=== PATIENT | female | born 1970 | race Caucasian/White ===

== ENCOUNTER 2024-03-03 16:59 | Inpatient (IN) | payer OTHER, SELFPAY ==
[2024-03-03 12:47] VITALS: BP 116/80; BMI 20.4
[2024-03-03] MEDS: TORADOL 15 MG IV (13:11)
--- NOTE | 2024-03-03 13:26 | ED.GENMED ---
History of Present Illness
General
Chief Complaint: Dental Problem
Source: patient
Exam Limitations: none
Time Seen by Provider: 03/03/24 13:09
History of Present Illness
History of Present Illness:
Patient is a 53-year-old woman with history of anxiety presenting to the emergency department with a dental infection. Patient states that she has had multiple dental caries with abscesses in the past. She has required admission many years ago for
IV antibiotics. She states about a month ago she went to an urgent care for a tooth infection and was given amoxicillin. She was recently incarcerated about 2 weeks ago. The infection got worse and she was on p.o. antibiotics. She believes that
she was on amoxicillin. For the past 2 days she has been giving IV clindamycin. However she states that the pain and swelling is worsening on the right side. She does state that her eye is more swollen. She does have a headache and some blurry
vision to the right eye. She does have some new numbness tingling to the right side of her body and face. She is unsure when that happened. No weakness. No fevers. She has been having some chills. No hearing changes. No chest pain or
difficulty breathing. No nausea no vomiting. She does have history of methamphetamine use. No history of IV drug use.
If applicable-neuro sx onset
Onset of symptoms known: No
Time pt last seen normal is known: No
Phy Exam
Physical Exam
Physical Exam:
GENERAL: in no acute distress
HEENT: normocephalic, extraocular movements intact, visual michel intact, right-sided periorbital edema, pupils equal and reactive bilaterally, moist oral mucosa, diffuse dental caries though no obvious abscess visualized, some right jaw fullness
NECK: normal inspection
RESPIRATORY: no respiratory distress, clear to auscultation bilaterally
CARDIOVASCULAR: regular rate and rhythm
ABDOMEN/: soft, non-distended, non-tender to palpation, no rebound or guarding
EXTREMITIES: non-tender, no edema/swelling
NEUROLOGIC: NEUROLOGIC: alert and oriented x 3, cranial nerves II-XII intact (slightly decreased sensation to the right face), right upper extremity strength 5/5, left upper extremity strength 5/5, right lower extremity strength 5/5, left lower
extremity strength 5/5, decree sensation to the right upper and lower extremity normal [id number] and [id number], gait not tested formally
SKIN: warm
Course
Orders/Labs/Results
Orders:
Orders
03/03/24 13:08
Ketorolac [Toradol] 15 mg .ROUTE .STK-MED ONE
03/03/24 13:10
Ketorolac [Toradol] 15 mg IV NOW STA
03/03/24 13:23
CT Facial Bones W/ Iv Contrast Urgent
Comment:
Reason For Exam: maxillary dental abscess
03/03/24 13:24
Electrocardiogram (*1) Urgent
Reason for Study: TIA/Stroke
EKG- Treatment ONCE
03/03/24 13:25
CT Head W/o Iv Contrast Urgent
Comment:
Reason For Exam: r/o cva
03/03/24 13:45
Basic Metabolic Panel Urgent
Complete Blood Count/With Diff Urgent
03/03/24 13:54
Diphenhydramine [Benadryl] 25 mg IV NOW STA
Prochlorperazine [Compazine] 5 mg IV NOW STA
03/03/24 14:15
0.9% Sodium Chloride 1000 ml [Nss] 1,000 ml IV BOLUS
03/03/24 15:49
Ampicillin/Sulbactam 3 G [Unasyn] 3 gm 0.9% Sodium Chloride 100 ml [Nss] 100 ml IV NOW
Abnormal Lab Results
03/03/24
13:45
RBC 4.09 L 10^6/uL
(4.20-5.40)
Hgb 11.7 L g/dL
(12.0-16.0)
Hct 34.2 L %
(37.0-47.0)
Absolute Neuts (auto) 8.2 H 10^3/uL
(1.4-6.5)
Absolute Monos (auto) 0.9 H 10^3/uL
(0.1-0.6)
Neutrophils % 75.3 H %
(42.2-75.2)
Lymphocytes % 14.6 L %
(20.5-51.1)
03/03/24 13:45
03/03/24 13:45
Vital Signs
Initial and Last Documented VS:
Initial Vital Signs
Temp Pulse Resp BP Pulse Ox
98.7 F 95 16 116/80 99
03/03/24 12:47 03/03/24 12:47 03/03/24 12:47 03/03/24 12:47 03/03/24 12:47
Last Documented Vital Signs
Temp Pulse Resp BP Pulse Ox
98.7 F 95 16 116/80 99
03/03/24 12:47 03/03/24 12:47 03/03/24 12:47 03/03/24 12:47 03/03/24 12:47
MDM/Problems Addressed
Differential Diagnosis Includes:
Patient is a 53-year-old woman presenting to the emergency department with a possible dental infection that has been ongoing for the past month. Patient is afebrile here. Exam does show right-sided periorbital edema with some right-sided swelling
to the face. She does have decreased right-sided sensation to the face upper and lower extremity, she does have diffuse dental caries but no obvious abscess. Differential consists of CVA versus abscess versus deeper space abscess such as
intracranial versus dental infection versus electrolyte derangement. Will obtain CBC BMP EKG CT scan of the brain to rule out CVA as well as CT face to evaluate abscess. Patient will need IV antibiotics and admission
Chronic conditions affecting care: Psychiatric illness
*Critical Care Note
Total Time (30-74mins, 75-104mins- exclusive of procedures): Not Applicable
Update Note
Update Note:
Labs showed normal white count. BMP is unremarkable. EKG per my interpretation normal sinus rhythm without any ST elevation. CT scan of the head without any acute abnormality. CT facial bone does show right-sided periapical abscess. Please see
read below. Patient's headache has improved after the migraine cocktail. Unfortunately still with ongoing right-sided decree sensation. Will give IV Unasyn for the infection. She has received fluids. Did notify [facility]. Discussed with hospitalist
who accepted to their service
There is a phlegmonous collection/likely developing abscess along the anterior right maxilla associated with the root of the maxillary right canine. This measures approximately 9 x 7 mm. There is additional soft tissue swelling and stranding
throughout the maxillary and mandibular soft tissues on the right
There is extensive additional dental caries involving the roots of the residual right-sided maxillary premolars and molars as well as the left maxillary molars and premolars. Dental caries involving the bilateral mandibular premolars with associated
periapical lucencies as well as an extensive likely carry of the left mandibular second molar.
There is mild mucosal thickening along the floor of the maxillary sinuses, likely odontogenic in nature.
ED Attending Note
-
Portions of this chart may have been created with voice recognition software.� Occasional wrong word or��sound alike� substitutions may have occurred due to the inherent limitations of voice recognition software.
Discharge Plan
Departure
Patient Disposition: Admit
Date of Disposition: 03/03/24
Time of Disposition: 15:58
Admit to doctor: roberto jin
Presentation/result/management discussed w/ accepting MD/DO: Hospitalist
Discharge Problem:
Abscess, dental, Numbness and tingling
Prescriptions:
No Action
quetiapine 25 mg Tablet
25 mg PO DAILY
amoxicillin 500 mg Capsule
500 mg PO TID
clonazepam 0.5 mg Tablet
0.5 mg PO HS
Theragen Tablet
1 tab PO DAILY
acetaminophen 500 mg Tablet
1,000 mg PO TID
diphenhydramine HCl 25 mg Capsule
25 mg PO BID
ibuprofen 600 mg Tablet
600 mg PO TIDPRN PRN (Reason: mild pain)
quetiapine 50 mg Tablet
50 mg PO HS
clindamycin in 0.9 % sod chlor 600 mg/50 mL Piggyback
600 mg IV Q8H
Referrals:
[facility] [Family Provider] -
Interventions
Interventions:
*Risk Screen - Suicide Last Done: 03/03/24 12:47
*General Assessment Last Done: 03/03/24 12:47
*Neglect/Abuse Screening Last Done: 03/03/24 12:47
ED- Fall Risk Assessment Last Done: 03/03/24 12:57
*ED COVID-19 Vaccine History Last Done: 03/03/24 12:47
Discharge Date and Time
Print Language: CZECH
[2024-03-03 13:58] LABS: % Basophils 0.6 % (0-2); % Eosinophils 1.2 % (0-6); % Immature Granulocytes 0.3 % (0-0.5); % Lymphocytes 14.6 % (20.5-51.1); % Neutrophils 75.3 % (42.2-75.2); Absolute Basophils 0.1 10^3/uL (0-0.2); Absolute Eosinophils 0.1 10^3/uL (0-0.7); Absolute Lymphocytes 1.6 10^3/uL (1.2-3.4); Absolute Monocytes 0.9 10^3/uL (0.1-0.6); Absolute Neutrophils 8.2 10^3/uL (1.4-6.5); Hematocrit 34.2 % (37.0-47.0); Hemoglobin 11.7 g/dL (12.0-16.0); Mean Corp Hgb Conc. 34.2 g/dL (33.0-37.0); Mean Corpuscular Hgb 28.6 pg (27.0-31.0); Mean Corpuscular Volume 83.6 fL (81.0-99.0); Mean Platelet Volume 9.1 fL (7.4-10.4); Nucleated Red Blood Cells % 0 %; Platelet Count 325 10^3/uL (130-400); Red Blood Cell Count 4.09 10^6/uL (4.20-5.40); Red Cell Dist. Width 13.6 % (11.5-14.5); White Blood Cell Count 10.8 10^3/uL (4.8-10.8)
[2024-03-03 14:10] LABS: Blood Urea Nitrogen 10 mg/dl (7-17); Calcium 9.2 mg/dl (8.4-10.2); Carbon Dioxide 29 mmol/L (22-30); Chloride 107 mmol/L (98-107); Estimated Creatinine Clearance 69 ml/min; Glucose 84 mg/dl (70-99); Potassium 3.9 mmol/L (3.5-5.1); Sodium 141 mmol/L (135-145); eGFR > 60.00
[2024-03-03] MEDS: COMPAZINE 5 MG IV (14:20)
[2024-03-03] MEDS: BENADRYL 25 MG IV (14:20)
[2024-03-03] MEDS: NSS 1000 IV (14:24)
[2024-03-03] MEDS: UNASYN IV ×2 (16:04→21:12)
--- NOTE | 2024-03-03 16:28 | HPS.HSE ---
Addendum entered and electronically signed by Morgan Colvin MD 03/03/24 17:07:
53 female past medical history of dental caries who is presenting from the F with facial pain and decreased sensation. Patient was found to have a dental abscess. Patient underwent CT of the head which is negative. Facial CT was positive with
mild abscess. Patient with history of methamphetamine abuse. Quit due to being incarcerated. Used to smoke. History of severely poor oral hygiene.
General: Chronically ill-appearing, appears older than stated age is
HEENT: Significantly poor oral hygiene, missing teeth, dental caries, prior cavity noted, R upper side missing teeth
Respiratory: Clear
Cardiac: S1/S2 and Regular Rhythm; No Murmur or Rub
GI: Soft, Non Tender, Non Distended and Normal Bowel Sounds; No Organomegaly
Musculoskeletal: No Clubbing, No Cyanosis and No Edema
Skin: Rash and Other (right facial swelling, redness)
Neuro: AO x 3 and Nonfocal/grossly intact, moving all 4 extremities
Psych: Calm
Impression
Dental abscess
Facial swelling secondary to above
Mood disorder
Polysubstance abuse
Plan
Start patient on liquid diet only
IV Unasyn 3 g every 6
OMFS has been consulted-may require drainage
Check blood cultures
ID evaluation
Chloraseptic oral rinse twice daily
Tylenol and ibuprofen
Ice pack as needed
I spent a total of 79 minutes with the patient or on the floor. More than 50% of this time involved counseling and coordination of care.
Original Note:
Family Physician
-
Family Physician: [facility]
Chief Complaint
-
dental swelling and pain
History of Present Illness
3-year-old woman with history of anxiety presenting to the emergency department with a dental infection. patient was noted to have right sided dental infection for which she was treated with abx a month ago. She was recently incarcerated about 2
weeks ago. The infection got worse and she was on p.o. antibiotics in the detention. patient stated worsening right facial swelling, pain. she complained of headache. she was also noted have right blurry vision. she was getting iv clindamycin in detention
with no improvement. denied fever, chills. denied chest pain, sob. denied abdominal pain,n,v,d. denied dysuria or hematuria. She does have history of methamphetamine use. she last used on 02/18.
patient started on Unasyn. admitting for further management.
Medical History
Past Medical History
Past Medical History: Reports Other
Additional Past Medical History:
anxiety
prolapsed uterus
Past Surgical History: Reports None and Other
Social History
Tobacco: Non-smoker
Alcohol: None
Drug: Other (meth)
Living: Nursing Home
Family History
Family History: Not pertinent
Allergies / Home Medications
Allergies reflects when Allergies were last updated in [facility].
Home Medications with original date entered in [facility]
Allergy/Medication List:
Allergies
Allergy/AdvReac Type Severity Reaction Status Date / Time
No Known Allergies Allergy Verified 03/03/24 13:10
Home Medications
acetaminophen 500 mg tablet 1,000 mg PO TID 03/03/24
amoxicillin 500 mg capsule 500 mg PO TID 03/03/24
clindamycin 600 mg/50 mL in 0.9% sodium chloride intravenous piggyback 600 mg IV Q8H 03/03/24
clonazepam 0.5 mg tablet 0.5 mg PO HS 03/03/24
diphenhydramine HCl 25 mg capsule 25 mg PO BID 03/03/24
ibuprofen 600 mg tablet 600 mg PO TIDPRN PRN mild pain 03/03/24
quetiapine 25 mg tablet 25 mg PO DAILY 03/03/24
quetiapine 50 mg tablet 50 mg PO HS 03/03/24
therapeutic multivitamin 1 tab PO DAILY 03/03/24
Review of Systems
-
Constitutional: Reports No Symptoms
EENT: Reports No Symptoms
Respiratory: Reports No Symptoms
Cardiac: Reports No Symptoms
Abdomen/GI: Reports No Symptoms
: Reports No Symptoms
Musculoskeletal: Reports No Symptoms
Skin: Reports Other (right facial swelling, redness)
Neurological: Reports No Symptoms
Endocrine: Reports No Symptoms
Hematologic/Lymphatic: Reports No Symptoms
Psych: Reports No Symptoms
Physical Exam
Vital Signs
Vital Signs
Temp Pulse Resp BP Pulse Ox
98.7 F 95 16 116/80 99
03/03/24 12:47 03/03/24 12:47 03/03/24 12:47 03/03/24 12:47 03/03/24 12:47
Physical Exam
General: Well Developed, Well Nourished and No Apparent Distress
HEENT: NormoCephalic, Moist mucous membranes and Atraumatic
Respiratory: Clear
Cardiac: S1/S2 and Regular Rhythm; No Murmur or Rub
GI: Soft, Non Tender, Non Distended and Normal Bowel Sounds; No Organomegaly
Rectal: Deferred by Provider
Musculoskeletal: No Clubbing, No Cyanosis and No Edema
Skin: Rash and Other (right facial swelling, redness)
Neuro: AO x 3 and Nonfocal/grossly intact
Psych: Calm
Laboratory Results
-
03/03/24 13:45
03/03/24 13:45
Data Reviewed
-
CT Scan: Report Reviewed by me
Lab Data: Labs Reviewed by me
Impression/Plan
-
# Dental abscess likely from meth abuse
-Facial bone CT with impression of phlegmonous collection/likely developing abscess along the anterior right maxilla associated with the root of the maxillary right canine. This measures approximately 9 x 7 mm. There is additional soft tissue
swelling and stranding throughout the maxillary and mandibular soft tissues on the rightThere is extensive additional dental caries involving the roots of the residual right-sided maxillary premolars and molars as well as the left maxillary molars
and premolars. Dental caries involving the bilateral mandibular premolars with associated periapical lucencies as well as an extensive likely carry of the left mandibular second molar. There is mild mucosal thickening along the floor of the
maxillary sinuses, likely odontogenic in nature.
-head CT with no acute findings.
-IV Unasyn continued
-Tylenol .Motrin prn for fever and pain
-obtain blood culture
-OMFS consulted
-liquid diet, NPO after MN
-ID consulted
#anxiety
-clonazepam and Seroquel continued
#hxt of meth abuse
-last use was february 18
#DVT prophylaxis
-Lovenox
#CODE status
-full code
--- NOTE | 2024-03-03 17:07 | W.PN.UPDATE ---
Update Note
Progress Note Update
FOR BILLING PURPOSE ONLY
[2024-03-03 17:38] VITALS: BP 121/76
[2024-03-03] MEDS: MOTRIN 600 MG PO (18:41)
[2024-03-03] MEDS: BENADRYL 25 MG PO (21:11)
[2024-03-03] MEDS: KLONOPIN 0.5 MG PO (21:11)
[2024-03-03] MEDS: PERIDEX 0.12% ORAL RINSE 15 ML PO (21:11)
[2024-03-03] MEDS: TYLENOL 1000 MG PO (21:11)
[2024-03-03] MEDS: LOVENOX 40 MG SC (21:11)
[2024-03-03] MEDS: SEROQUEL 50 MG PO (21:15)
[2024-03-03 23:24] VITALS: BP 137/84
[2024-03-04] MEDS: UNASYN IV ×4 (04:23→21:22)
[2024-03-04 06:00] VITALS: BMI 19.7
[2024-03-04 07:20] VITALS: BP 127/90
[2024-03-04] MEDS: BENADRYL PO (07:54)
[2024-03-04] MEDS: TYLENOL PO (07:54)
[2024-03-04] MEDS: SEROQUEL PO (07:55)
[2024-03-04 08:43] LABS: % Basophils 0.7 % (0-2); % Eosinophils 2.2 % (0-6); % Immature Granulocytes 0.4 % (0-0.5); % Lymphocytes 18.1 % (20.5-51.1); % Monocytes 5.9 % (1.7-9.3); % Neutrophils 72.7 % (42.2-75.2); Absolute Basophils 0.1 10^3/uL (0-0.2); Absolute Eosinophils 0.2 10^3/uL (0-0.7); Absolute Lymphocytes 1.6 10^3/uL (1.2-3.4); Absolute Monocytes 0.5 10^3/uL (0.1-0.6); Absolute Neutrophils 6.5 10^3/uL (1.4-6.5); Hematocrit 35.4 % (37.0-47.0); Hemoglobin 12.2 g/dL (12.0-16.0); Mean Corp Hgb Conc. 34.5 g/dL (33.0-37.0); Mean Corpuscular Hgb 28.5 pg (27.0-31.0); Mean Corpuscular Volume 82.7 fL (81.0-99.0); Mean Platelet Volume 9.1 fL (7.4-10.4); Nucleated Red Blood Cells % 0 %; Platelet Count 321 10^3/uL (130-400); Red Blood Cell Count 4.28 10^6/uL (4.20-5.40); Red Cell Dist. Width 13.4 % (11.5-14.5)
[2024-03-04 08:45] LABS: Blood Urea Nitrogen 7 mg/dl (7-17); Calcium 9.3 mg/dl (8.4-10.2); Carbon Dioxide 26 mmol/L (22-30); Chloride 107 mmol/L (98-107); Estimated Creatinine Clearance 79 ml/min; Glucose 85 mg/dl (70-99); Potassium 4.1 mmol/L (3.5-5.1); Sodium 140 mmol/L (135-145); eGFR > 60.00
[2024-03-04] MEDS: TYLENOL 1000 MG PO ×3 (09:27→21:32)
[2024-03-04] MEDS: PERIDEX 0.12% ORAL RINSE 15 ML PO ×2 (09:30→20:26)
[2024-03-04] MEDS: BENADRYL 25 MG PO ×2 (09:31→20:26)
--- NOTE | 2024-03-04 09:31 | CON.ID ---
Consultation
-
Date/Time Consultation Requested: March 03, 2024 1652
Date/Time Consultation Performed: March 04, 2024 1000
Requesting Provider: Dr. Morgan Colvin
Performing Provider: Dr. Silvina Rangel
Reason for Consultation: dental abscess
Chief Complaint / Past History
Chief Complaint
Right side face swelling
History of Present Illness
53-year-old female with history of methamphetamine abuse who presented to the ER from prison yesterday due to worsening right facial swelling. She reports approximately 2 months ago she started having right upper tooth pain with facial swelling. She
went to [facility] and was prescribed 10 days of amoxicillin. Her symptoms improved but the facial swelling did not completely resolve. Approximately 2 weeks ago she was incarcerated. While in prison, the right facial swelling started to get
worse again. She was placed on amoxicillin without improvement. She was started on IV clindamycin without results. Her pain and swelling progress around the eye. Her right eye was shut due to swelling. She complains of headache right greater
than left. CAT scan shows right canine root abscess and extensive dental caries. She was started on Unasyn. Today she reports the swelling has improved somewhat. She can now open her right eye.
Past History
Additional Past Medical History:
Anxiety
prolapsed uterus
Methamphetamine abuse
Allergy History:
No Known Allergies Allergy (Verified 03/03/24 13:10)
Medications Reviewed: Yes
Current Antibiotics:
Unasyn
Social History
Tobacco: Non-Smoker
Alcohol: None
Drug: Other (Meth)
Living: Assisted
Family History
Family History: Not Pertinent
Review of Systems
Review of Systems
General: Negative Fever, Chills or Change in Appetite
HEENT: Headache; Negative Pharyngitis
Cardiovascular: Negative Chest Pain or Dyspnea
Respiratory: Negative Dyspnea
Gasteroenterology: Other (no diarrhea); Negative Nausea or Vomiting
Genital / Urological: Negative Dysuria or Flank Pain
Endocrine: Negative Weakness
Neurological: Headache; Negative Dizziness
All systems: All other systems were reviewed and were negative
Vital Signs
Temp Pulse Resp BP Pulse Ox
99.4 F 88 16 127/90 96
03/04/24 07:20 03/04/24 07:20 03/04/24 07:20 03/04/24 07:20 03/04/24 07:20
Physical Exam
Physical Exam
Constitutional: No Acute Distress and Cachetic
Head: Other (Right medial face edema from maxillary to periorbital)
Eyes: No Conjunctival Hemorrhage and Sclera Anicteric
Oral: Poor Dentition (Tender right canine)
Cardiovascular: Regular Rate and S1/S2
Pulmonary: Clear
Gastrointestinal: Soft, Non Tender, Non Distended and Normal Bowel Sounds
Genito-Urinary: Negative CVA Tenderness
Extremities: Negative Edema
Neurological: AO x 3
Lab / Diagnostic Study Results
03/04/24 07:58
03/04/24 07:58
Abs Immat Gran (auto) 0.0 10^3/uL (0-0.05) 03/04/24 07:58
Absolute Neuts (auto) 6.5 10^3/uL (1.4-6.5) 03/04/24 07:58
Absolute Lymphs (auto) 1.6 10^3/uL (1.2-3.4) 03/04/24 07:58
Absolute Monos (auto) 0.5 10^3/uL (0.1-0.6) 03/04/24 07:58
Absolute Basos (auto) 0.1 10^3/uL (0-0.2) 03/04/24 07:58
Immature Gran % 0.4 % (0-0.5) 03/04/24 07:58
Neutrophils % 72.7 % (42.2-75.2) 03/04/24 07:58
Lymphocytes % 18.1 % (20.5-51.1) L 03/04/24 07:58
Monocytes % 5.9 % (1.7-9.3) 03/04/24 07:58
Eosinophils % 2.2 % (0-6) 03/04/24 07:58
Basophils % 0.7 % (0-2) 03/04/24 07:58
Microbiology Results
Micro:
03/03/24 07:00 MRSA Screen - Pending
Nose
03/03/24 18:22 Blood Culture - Pending
Blood/Venous
03/03/24 CT facial bones with contrast: There is a phlegmonous collection/likely developing abscess along the anterior right maxilla associated with the root of the maxillary right canine. This measures approximately 9 x 7 mm. There is additional soft
tissue swelling and stranding throughout the maxillary and mandibular soft tissues on the right. There is extensive additional dental caries involving the roots of the residual right-sided maxillary premolars and molars as well as the left
maxillary molars and premolars. Dental caries involving the bilateral mandibular premolars with associated periapical lucencies as well as an extensive likely carry of the left mandibular second molar.
03/03/[address]: No acute intracranial abnormality noted.
Assessment / Plan
# Odontogenic abscess
- OMFS to drain abscess - pls send cultures
- Continue Unasyn (d2)
# Incarcerated
# Additional Past Medical History:
Anxiety
prolapsed uterus
Methamphetamine abuse
[2024-03-04] MEDS: SEROQUEL 25 MG PO (09:32)
[2024-03-04] MEDS: FLUSH (NSS) 1 FLUSH IV (09:33)
--- NOTE | 2024-03-04 11:26 | W.PN.HOSP.TC ---
Today's Communication/Plan
-
npo in case for procedure
IV abx
OMFS eval
Assessment / Plan
Assessment / Plan
General: Chronically ill-appearing, appears older than stated age.
HEENT: Significantly poor oral hygiene, missing teeth, dental caries, prior cavity noted, R upper side missing teeth, significant improved right-sided facial swelling
Respiratory: Clear
Cardiac: S1/S2 and Regular Rhythm; No Murmur or Rub
GI: Soft, Non Tender, Non Distended and Normal Bowel Sounds; No Organomegaly
Musculoskeletal: No Clubbing, No Cyanosis and No Edema
Skin: Rash and Other (right facial swelling, redness)
Neuro: AO x 3 and Nonfocal/grossly intact, moving all 4 extremities,
Psych: anxious
# Odontogenic abscess
-Facial bone CT with impression of phlegmonous collection/likely developing abscess along the anterior right maxilla associated with the root of the maxillary right canine. This measures approximately 9 x 7 mm. There is additional soft tissue
swelling and stranding throughout the maxillary and mandibular soft tissues on the rightThere is extensive additional dental caries involving the roots of the residual right-sided maxillary premolars and molars as well as the left maxillary molars
and premolars. Dental caries involving the bilateral mandibular premolars with associated periapical lucencies as well as an extensive likely carry of the left mandibular second molar. There is mild mucosal thickening along the floor of the
maxillary sinuses, likely odontogenic in nature.
-head CT with no acute findings.
-IV Unasyn continued
-Tylenol .Motrin prn for fever and pain
-obtain blood culture
-OMFS consulted in ER. Awaiting Eval. Kept NPO in case plan for procedure
-ID consulted
#anxiety
-clonazepam and Seroquel continued
#meth amphetamines abuse
-last use was february 18 prior to being incarcerated
#DVT prophylaxis
-Lovenox
#CODE status
-full code
Anticipated Discharge: > 48 hours
Subjective/Interval History
-
Date of Service: March 04, 2024
states of severe anxiety
Objective Data
-
Labs:
Laboratory Results
03/04/24
07:58
WBC 9.0
Hgb 12.2
Hct 35.4 L
Plt Count 321
Sodium 140
Potassium 4.1
Chloride 107
Carbon Dioxide 26
BUN 7
Creatinine 0.6
Glucose 85
Calcium 9.3
Vital Signs:
Vital Signs
Temp Pulse Resp BP Pulse Ox
99.4 F 88 16 127/90 96
03/04/24 07:20 03/04/24 07:20 03/04/24 07:20 03/04/24 07:20 03/04/24 07:20
--- NOTE | 2024-03-04 11:31 | CM ---
Patient from [facility]
DX right facial swelling/abscess
Plan: back to [facility], watch for IV anbx.
[facility]
report# [facility] [phone]
fax# [phone]
[2024-03-04] MEDS: NICODERM TRANSDERMAL 21 MG TRANSDERM (12:58)
[2024-03-04] MEDS: MOTRIN 600 MG PO (14:20)
--- NOTE | 2024-03-04 14:32 | CON.ORS ---
Consultation - Oral Surgery
Subjective
53 year old female with past medical history of methamphetamine abuse, anxiety who presented to the ED yesterday due to right facial swelling. She states that she had right facial swelling previously and her dentist prescribed her Amoxicillin. She
was incarcerated 2 weeks ago. While incarcerated she developed worsening right facial swelling. She was initially started on Amoxicillin then IV Clindamycin without improvement. She was started on Unasyn in the ED yesterday and there has been
improvement in swelling. She states that she could not open her eye yesterday but today she can.
Past Medical History
Past Medical History: Other (Anxiety, Methamphetamine abuse)
Past Surgical History: None
Alcohol: None
Drug: Other (Methamphetamine)
Tobacco: Non-smoker
Medications / Allergies
Allergies
Allergy/AdvReac Type Severity Reaction Status Date / Time
No Known Allergies Allergy Verified 03/03/24 13:10
Active Medications
Generic Name Dose Route Start Last Admin
Trade Name Freq PRN Reason Stop Dose Admin
Acetaminophen 1,000 mg 03/03/24 22:00 03/04/24 09:27
Acetaminophen 500 Mg Tablet PO 03/31/24 21:59 1,000 mg
TID MARIANGEL Administration
Bisacodyl 10 mg 03/03/24 19:30
Bisacodyl 10 Mg Rectal Suppository RECTAL 03/31/24 19:29
[id number] PRN
constipation
Chlorhexidine Gluconate 15 ml 03/03/24 20:00 03/04/24 09:30
Chlorhexidine Oral Rinse 0.12% 15 Ml Cup PO 03/31/24 19:59 15 ml
BID MARIANGEL Administration
Clonazepam 0.5 mg 03/03/24 22:00 03/03/24 21:11
Clonazepam 0.5 Mg Tablet PO 03/31/24 21:59 0.5 mg
HS MARIANGEL Administration
Diphenhydramine HCl 25 mg 03/03/24 20:00 03/04/24 09:31
Diphenhydramine 25 Mg Capsule PO 03/31/24 19:59 25 mg
BID MARIANGEL Administration
Enoxaparin Sodium 40 mg 03/03/24 19:30 03/03/24 21:11
Enoxaparin Sodium 40 Mg/0.4 Ml Syringe SC 03/31/24 19:29 40 mg
QPM MARIANGEL Administration
Ampicillin Sodium/Sulbactam 120 mls @ 240 mls/hr 03/03/24 22:00 03/04/24 09:27
Sodium 3 gm/ Sodium Chloride IV 120 mls
Q6H MARIANGEL Administration
Ibuprofen 600 mg 03/03/24 19:15 03/04/24 14:20
Ibuprofen 600 Mg Tablet PO 03/31/24 19:14 600 mg
TIDPRN PRN Administration
mild pain
Nicotine 21 mg 03/04/24 13:00 03/04/24 12:58
Nicotine 21 Mg Patch TRANSDERM 04/01/24 12:59 21 mg
DAILY MARIANGEL Administration
Patch Removal 0 patch 03/04/24 22:00
Remove Nicotine Patch REMOVE 04/01/24 21:59
HS MARIANGEL
Polyethylene Glycol 17 grams 03/03/24 19:30
Polyethylene Glycol Powder 17 Grams Packet PO 03/31/24 19:29
DAILYPRN PRN
constipation
Quetiapine Fumarate 25 mg 03/04/24 08:00 03/04/24 09:32
Quetiapine 25 Mg Tablet PO 04/01/24 07:59 25 mg
DAILY MARIANGEL Administration
Quetiapine Fumarate 50 mg 03/03/24 22:00 03/03/24 21:15
Quetiapine 25 Mg Tablet PO 03/31/24 21:59 50 mg
HS MARIANGEL Administration
Senna/Docusate Sodium 1 tablet 03/03/24 19:30
Docusate W/Senna (Linn-Colace) Tablet PO 03/31/24 19:29
BIDPRN PRN
constipation
Sodium Chloride 0 flush 03/03/24 20:00 03/04/24 09:33
Sodium Chloride 0.9% (Flush) Syringe IV 03/31/24 19:59 1 flush
PER PROTOCOL MARIANGEL Administration
Review of Systems
Constitutional: Reports No Symptoms
Eyes: Reports No Symptoms
ENT: Reports Tooth Pain and Other (Right facial pain and swelling)
Cardiovascular: Reports No Symptoms
Respiratory: Reports No Symptoms
Vital Signs
Temp Pulse Resp BP Pulse Ox
37.4 C 88 16 127/90 96
03/04/24 07:20 03/04/24 07:20 03/04/24 07:20 03/04/24 07:20 03/04/24 07:20
Physical Exam
General: Awake, Alert and Oriented x 3
Extra-oral Exam: V2 10/10 Bilaterally and Other (Mild, soft, right facial swelling extending just below orbital rim)
Intra-oral Exam: Other (Mild right vestibular swelling adjacent to tooth #6, no purulence draining, retained root #6, generalized caries and multiple other retained roots)
CT Results
CT Facial Bones:
There is a phlegmonous collection/likely developing abscess along the anterior right maxilla associated with the root of the maxillary right canine. This measures approximately 9 x 7 mm. There is additional soft tissue swelling and stranding
throughout the maxillary and mandibular soft tissues on the right
There is extensive additional dental caries involving the roots of the residual right-sided maxillary premolars and molars as well as the left maxillary molars and premolars. Dental caries involving the bilateral mandibular premolars with associated
periapical lucencies as well as an extensive likely carry of the left mandibular second molar.
There is mild mucosal thickening along the floor of the maxillary sinuses, likely odontogenic in nature.
Assessment / Plan
53 year old female consulted for a small abscess associated with tooth #6, which has improved while on Unasyn. Based on physical and radiographic examination, as well as request for cultures from ID, I recommended bedside I&D with cultures. She has
significant dental needs and can be set up as an outpatient with me or with the available dentist while incarcerated for extractions. We have discussed all risks, benefits, complications and alternatives to I&D including but not limited to bleeding,
pain, persistent infection, swelling, hypoesthesia, and need for additional procedure. Patient is aware and understands all risks and complications. Consent signed and in chart.
The site was anesthetized with 5.1 cc of 2% lidocaine with 1:100,00 epinephrine. A #15 blade was used to make a vestibular incision at site #6 and a periosteal elevator was used to bluntly dissect into the canine space. Aerobic and anaerobic
cultures taken. Irrigated with NSS.
- Encouraged oral hygiene maintenance daily
- Continue antibiotics per ID
- Ok for discharge concerning abscess
- Will need follow-up for multiple extractions with me or with the available dentist while incarcerated
Data Reviewed
CT Scan: Image personally visualized and interpreted and Report Reviewed by me
Labs: Labs Reviewed by me
[2024-03-04 15:20] VITALS: BP 150/96
[2024-03-04] MEDS: LOVENOX 40 MG SC (18:50)
[2024-03-04] MEDS: SEROQUEL 50 MG PO (21:22)
[2024-03-04] MEDS: KLONOPIN 0.5 MG PO (21:22)
[2024-03-04 23:00] VITALS: BP 127/93
[2024-03-05] MEDS: BENADRYL ELIXIR 12.5 MG PO (00:46)
[2024-03-05] MEDS: UNASYN IV ×4 (04:06→21:26)
[2024-03-05 06:00] VITALS: BMI 19.7
[2024-03-05 07:20] VITALS: BP 129/95
[2024-03-05 08:04] LABS: % Basophils 0.8 % (0-2); % Eosinophils 2.1 % (0-6); % Immature Granulocytes 0.3 % (0-0.5); % Monocytes 6.2 % (1.7-9.3); % Neutrophils 69.6 % (42.2-75.2); Absolute Basophils 0.1 10^3/uL (0-0.2); Absolute Eosinophils 0.2 10^3/uL (0-0.7); Absolute Lymphocytes 1.8 10^3/uL (1.2-3.4); Absolute Monocytes 0.5 10^3/uL (0.1-0.6); Hematocrit 37.2 % (37.0-47.0); Hemoglobin 12.7 g/dL (12.0-16.0); Mean Corp Hgb Conc. 34.1 g/dL (33.0-37.0); Mean Corpuscular Hgb 27.9 pg (27.0-31.0); Mean Corpuscular Volume 81.6 fL (81.0-99.0); Mean Platelet Volume 8.9 fL (7.4-10.4); Nucleated Red Blood Cells % 0 %; Platelet Count 345 10^3/uL (130-400); Red Blood Cell Count 4.56 10^6/uL (4.20-5.40); Red Cell Dist. Width 13.4 % (11.5-14.5); White Blood Cell Count 8.7 10^3/uL (4.8-10.8)
[2024-03-05 08:28] LABS: Blood Urea Nitrogen 11 mg/dl (7-17); Calcium 9.7 mg/dl (8.4-10.2); Carbon Dioxide 26 mmol/L (22-30); Chloride 104 mmol/L (98-107); Estimated Creatinine Clearance 79 ml/min; Glucose 88 mg/dl (70-99); Potassium 4.3 mmol/L (3.5-5.1); Sodium 138 mmol/L (135-145); eGFR > 60.00
[2024-03-05] MEDS: PERIDEX 0.12% ORAL RINSE PO (08:34)
[2024-03-05] MEDS: BENADRYL 25 MG PO ×2 (08:36→21:26)
[2024-03-05] MEDS: SEROQUEL 25 MG PO (08:36)
[2024-03-05] MEDS: TYLENOL 1000 MG PO ×3 (08:36→21:24)
[2024-03-05] MEDS: NICODERM TRANSDERMAL 21 MG TRANSDERM (08:36)
--- NOTE | 2024-03-05 10:38 | W.PN.HOSP.TC ---
Today's Communication/Plan
-
ID recs
Await culture data
Continue IV antibiotics
Assessment / Plan
Assessment / Plan
General: Chronically ill-appearing, appears older than stated age.
HEENT: Significantly poor oral hygiene, missing teeth, dental caries, prior cavity noted, R upper side missing teeth, significant improved right-sided facial swelling
Respiratory: Clear
Cardiac: S1/S2 and Regular Rhythm; No Murmur or Rub
GI: Soft, Non Tender, Non Distended and Normal Bowel Sounds; No Organomegaly
Musculoskeletal: No Clubbing, No Cyanosis and No Edema
Skin: Rash and Other (right facial swelling significant improvement.
Neuro: AO x 3 and Nonfocal/grossly intact, moving all 4 extremities,
Psych: anxious
# Odontogenic abscess
-Facial bone CT with impression of phlegmonous collection/likely developing abscess along the anterior right maxilla associated with the root of the maxillary right canine. This measures approximately 9 x 7 mm. There is additional soft tissue
swelling and stranding throughout the maxillary and mandibular soft tissues on the rightThere is extensive additional dental caries involving the roots of the residual right-sided maxillary premolars and molars as well as the left maxillary molars
and premolars. Dental caries involving the bilateral mandibular premolars with associated periapical lucencies as well as an extensive likely carry of the left mandibular second molar. There is mild mucosal thickening along the floor of the
maxillary sinuses, likely odontogenic in nature.
-head CT with no acute findings.
-IV Unasyn continued
-Tylenol .Motrin prn for fever and pain
-obtain blood culture-NEGATIVE so far
-Status post I&D of small abscess of tooth #6 by [facility].
-Cultures sent to lab however patient has received IV antibiotic in the hospital, at [facility] and also multiple p.o. antibiotics recently.
-Counseled on oral hygiene clearance and outpatient follow-up.
-ID recs
#anxiety
-clonazepam and Seroquel continued
#meth amphetamines abuse
-last use was february 18 prior to being incarcerated
#DVT prophylaxis
-Lovenox
#CODE status
-full code
Anticipated Discharge: Within 24 hours
Subjective/Interval History
-
Date of Service: March 05, 2024
states of anxiety and wants more Benadryl for it
improvement in facial swelling
tolerating diet
Objective Data
-
Labs:
Laboratory Results
03/05/24
07:15
WBC 8.7
Hgb 12.7
Hct 37.2
Plt Count 345
Sodium 138
Potassium 4.3
Chloride 104
Carbon Dioxide 26
BUN 11
Creatinine 0.6
Glucose 88
Calcium 9.7
Vital Signs:
Vital Signs
Temp Pulse Resp BP Pulse Ox
98.7 F 93 16 129/95 98
03/05/24 07:20 03/05/24 07:20 03/05/24 07:20 03/05/24 07:20 03/05/24 07:20
I&O
03/04/24 03/05/24 03/06/24
06:59 06:59 06:59
Intake Total 240 / 240
Balance 240 / 240
--- NOTE | 2024-03-05 15:07 | W.PN.ID1 ---
Date of Service
Date of Service: March 05, 2024
Today's Communication
Continue antibiotics for today.
Assessment / Plan
# Odontogenic abscess
- S/P abscess drainage; cultures pending.
- Continue Unasyn (d#3). May be able to transition to an oral regimen in the next 24 to 48 hours depending on clinical progress.
# Incarcerated
# Additional Past Medical History:
Anxiety
prolapsed uterus
Methamphetamine abuse
Chief Complaint
-: Other (Odontogenic abscess)
Subjective / Review of Systems
Patient seen and examined. Reports some improvement in discomfort on the right face area.
Vital Signs / Physical Exam
Vital Signs
Vital Signs
Temp Pulse Resp BP Pulse Ox
98.7 F 93 16 129/95 98
03/05/24 07:20 03/05/24 07:20 03/05/24 07:20 03/05/24 07:20 03/05/24 07:20
Physical Exam
Constitutional: No Acute Distress, Comfortable and Non-toxic
Head: Other (right facial swelling noted.)
Oropharyngeal: Other (mild trismus)
Pulmonary: Non Labored
Extremities: Negative Edema, Cyanosis or Erythema
Skin: Negative Rash or Jaundice
Neurological: Awake and Alert
Objective Data
Lab Data
Lab Results
03/05/24 07:15
03/05/24 07:15
Estimated Creat Clear 79 ml/min 03/05/24 07:15
Most recent labs reviewed.
Micro Results:
03/04/24 18:09 Wound Culture - Preliminary
Abscess No growth
Gram Stain - Preliminary
03/03/24 07:00 MRSA Screen - Final
Nose No Methicillin Resistant Staphylococcus aureus isolated.
03/03/24 18:22 Blood Culture - Preliminary
Blood/Venous No Growth in 24 hours- Final report to follow
03/03/24 CT facial bones with contrast: There is a phlegmonous collection/likely developing abscess along the anterior right maxilla associated with the root of the maxillary right canine. This measures approximately 9 x 7 mm. There is additional soft
tissue swelling and stranding throughout the maxillary and mandibular soft tissues on the right. There is extensive additional dental caries involving the roots of the residual right-sided maxillary premolars and molars as well as the left
maxillary molars and premolars. Dental caries involving the bilateral mandibular premolars with associated periapical lucencies as well as an extensive likely carry of the left mandibular second molar.
03/03/[address]: No acute intracranial abnormality noted.
[2024-03-05 15:20] VITALS: BP 152/100
[2024-03-05] MEDS: LOVENOX 40 MG SC (16:38)
[2024-03-05] MEDS: SEROQUEL 50 MG PO (21:25)
[2024-03-05] MEDS: KLONOPIN 0.5 MG PO (21:25)
[2024-03-05 23:53] VITALS: BP 115/73
[2024-03-06] MEDS: UNASYN IV ×4 (03:46→21:16)
[2024-03-06 08:05] VITALS: BP 139/89
[2024-03-06] MEDS: TYLENOL 1000 MG PO ×3 (08:10→21:16)
[2024-03-06] MEDS: SEROQUEL 25 MG PO (08:10)
[2024-03-06] MEDS: BENADRYL 25 MG PO ×2 (08:10→19:22)
[2024-03-06 08:38] LABS: % Basophils 1.1 % (0-2); % Immature Granulocytes 0.3 % (0-0.5); % Lymphocytes 26.7 % (20.5-51.1); % Monocytes 7.1 % (1.7-9.3); % Neutrophils 60.8 % (42.2-75.2); Absolute Basophils 0.1 10^3/uL (0-0.2); Absolute Eosinophils 0.3 10^3/uL (0-0.7); Absolute Lymphocytes 1.9 10^3/uL (1.2-3.4); Absolute Monocytes 0.5 10^3/uL (0.1-0.6); Absolute Neutrophils 4.3 10^3/uL (1.4-6.5); Hematocrit 39.2 % (37.0-47.0); Hemoglobin 13.3 g/dL (12.0-16.0); Mean Corp Hgb Conc. 33.9 g/dL (33.0-37.0); Mean Corpuscular Hgb 28.7 pg (27.0-31.0); Mean Corpuscular Volume 84.7 fL (81.0-99.0); Mean Platelet Volume 8.9 fL (7.4-10.4); Nucleated Red Blood Cells % 0 %; Platelet Count 361 10^3/uL (130-400); Red Blood Cell Count 4.63 10^6/uL (4.20-5.40); Red Cell Dist. Width 13.3 % (11.5-14.5)
[2024-03-06 09:21] LABS: Blood Urea Nitrogen 13 mg/dl (7-17); Calcium 9.7 mg/dl (8.4-10.2); Carbon Dioxide 27 mmol/L (22-30); Chloride 104 mmol/L (98-107); Estimated Creatinine Clearance 68 ml/min; Glucose 89 mg/dl (70-99); Potassium 4.2 mmol/L (3.5-5.1); Sodium 138 mmol/L (135-145); eGFR > 60.00
--- NOTE | 2024-03-06 11:35 | W.PN.HOSP.TC ---
Today's Communication/Plan
-
monitor facial swelling-improving
IV abx
ID recs
await culture data
Assessment / Plan
Assessment / Plan
General: Chronically ill-appearing, appears older than stated age.
HEENT: Significantly poor oral hygiene, missing teeth, dental caries, prior cavity noted, R upper side missing teeth, significant improved right-sided facial swelling
Respiratory: Clear
Cardiac: S1/S2 and Regular Rhythm; No Murmur or Rub
GI: Soft, Non Tender, Non Distended and Normal Bowel Sounds; No Organomegaly
Musculoskeletal: No Clubbing, No Cyanosis and No Edema
Skin: Rash and Other (right facial swelling significant improvement.
Neuro: AO x 3 and Nonfocal/grossly intact, moving all 4 extremities,
Psych: flat affect
# Odontogenic abscess
-Facial bone CT with impression of phlegmonous collection/likely developing abscess along the anterior right maxilla associated with the root of the maxillary right canine. This measures approximately 9 x 7 mm. There is additional soft tissue
swelling and stranding throughout the maxillary and mandibular soft tissues on the rightThere is extensive additional dental caries involving the roots of the residual right-sided maxillary premolars and molars as well as the left maxillary molars
and premolars. Dental caries involving the bilateral mandibular premolars with associated periapical lucencies as well as an extensive likely carry of the left mandibular second molar. There is mild mucosal thickening along the floor of the
maxillary sinuses, likely odontogenic in nature.
-head CT with no acute findings.
-IV Unasyn continued
-Tylenol .Motrin prn for fever and pain
-obtain blood culture-NEGATIVE so far
-Status post I&D of small abscess of tooth #6 by OMFS.
-Cultures sent to lab however patient has received IV antibiotic in the hospital, at [facility] and also multiple p.o. antibiotics recently.
-Counseled on oral hygiene clearance and outpatient follow-up.
-ID recs
#anxiety
-clonazepam and Seroquel continued
#meth amphetamines abuse
-last use was february 18 prior to being incarcerated
#DVT prophylaxis
-Lovenox
#CODE status
-full code
Anticipated Discharge: Within 24 hours
Subjective/Interval History
-
Date of Service: March 06, 2024
improvement in facial swelling
Objective Data
-
Labs:
Laboratory Results
03/06/24
07:46
WBC 7.0
Hgb 13.3
Hct 39.2
Plt Count 361
Sodium 138
Potassium 4.2
Chloride 104
Carbon Dioxide 27
BUN 13
Creatinine 0.7
Glucose 89
Calcium 9.7
Vital Signs:
Vital Signs
Temp Pulse Resp BP Pulse Ox
98.6 F 88 20 139/89 99
03/06/24 08:05 03/06/24 08:05 03/06/24 08:05 03/06/24 08:05 03/06/24 08:05
I&O
03/05/24 03/06/24 03/07/24
06:59 06:59 06:59
Intake Total 240 / 240
Balance 240 / 240
[2024-03-06] MEDS: NICODERM TRANSDERMAL TRANSDERM (12:07)
--- NOTE | 2024-03-06 12:56 | W.PN.ID1 ---
Date of Service
Date of Service: March 06, 2024
Today's Communication
Continue Unasyn
Assessment / Plan
# Odontogenic abscess
- S/P abscess drainage; cultures unrevealing thus far.
- Continue Unasyn (d#4). May be able to transition to an oral regimen in the next 24 hours depending on clinical progress.
# Incarcerated
# Additional Past Medical History:
Anxiety
prolapsed uterus
Methamphetamine abuse
Chief Complaint
-: Other (Odontogenic abscess)
Subjective / Review of Systems
Patient seen and examined. Reports ongoing facial swelling and tenderness, although somewhat decreased from yesterday.
Review of Systems: No Fever and No Chills
Vital Signs / Physical Exam
Vital Signs
Vital Signs
Temp Pulse Resp BP Pulse Ox
98.6 F 88 20 139/89 99
03/06/24 08:05 03/06/24 08:05 03/06/24 08:05 03/06/24 08:05 03/06/24 08:05
Physical Exam
Constitutional: No Acute Distress, Comfortable and Non-toxic
Head: Other (swelling/tenderness persists on right nasal area. No appreciable fluctuance.)
Eyes: No Conjunctival Hemorrhage and Sclera Anicteric
Oropharyngeal: Poor Dention
Neurological: Awake and Alert
Psychological: Calm
Objective Data
Lab Data
Lab Results
03/06/24 07:46
03/06/24 07:46
Estimated Creat Clear 68 ml/min 03/06/24 07:46
Most recent labs reviewed.
Micro Results:
03/04/24 18:09 Wound Culture - Final
Abscess No growth
Gram Stain - Final
03/03/24 18:22 Blood Culture - Preliminary
Blood/Venous No Growth in 48 hours- Final report to follow
03/03/24 07:00 MRSA Screen - Final
Nose No Methicillin Resistant Staphylococcus aureus isolated.
03/03/24 CT facial bones with contrast: There is a phlegmonous collection/likely developing abscess along the anterior right maxilla associated with the root of the maxillary right canine. This measures approximately 9 x 7 mm. There is additional soft
tissue swelling and stranding throughout the maxillary and mandibular soft tissues on the right. There is extensive additional dental caries involving the roots of the residual right-sided maxillary premolars and molars as well as the left
maxillary molars and premolars. Dental caries involving the bilateral mandibular premolars with associated periapical lucencies as well as an extensive likely carry of the left mandibular second molar.
03/03/[address]: No acute intracranial abnormality noted.
[2024-03-06 15:42] VITALS: BP 127/86
[2024-03-06] MEDS: NICODERM TRANSDERMAL 21 MG TRANSDERM (15:48)
--- NOTE | 2024-03-06 16:04 | CHAP ---
Nursing staff called, requesting a Bible for Veronica. Veronica greeted me with tears, and shared her story. She also asked for guidance on what parts of the Bible to read. Access Services Assistant provided, along with emotional and spiritual support.
[2024-03-06] MEDS: LOVENOX 40 MG SC (17:05)
[2024-03-06] MEDS: KLONOPIN 0.5 MG PO (21:16)
[2024-03-06] MEDS: SEROQUEL 50 MG PO (21:16)
[2024-03-06 23:47] VITALS: BP 138/100
[2024-03-07] MEDS: UNASYN IV ×2 (04:14→09:09)
[2024-03-07 04:57] VITALS: BP 131/80
[2024-03-07 07:45] VITALS: BP 120/95
[2024-03-07] MEDS: NICODERM TRANSDERMAL TRANSDERM (08:24)
[2024-03-07] MEDS: SEROQUEL 25 MG PO (08:27)
[2024-03-07] MEDS: TYLENOL 1000 MG PO ×2 (08:27→16:13)
[2024-03-07] MEDS: BENADRYL 25 MG PO (08:27)
--- NOTE | 2024-03-07 11:23 | W.PN.ID1 ---
Date of Service
Date of Service: March 07, 2024
Today's Communication
-Transition Unasyn to Augmentin 875 mg po bid through 03/16/24.
Assessment / Plan
# Odontogenic abscess
- S/P abscess drainage; cultures negative.
- Transition Unasyn to Augmentin 875 mg po bid x 10 more days through 03/16/24.
# Incarcerated
# Additional Past Medical History:
Anxiety
prolapsed uterus
Methamphetamine abuse
Chief Complaint
-: Other (Odontogenic abscess)
Subjective / Review of Systems
Tooth and face feel better.
Vital Signs / Physical Exam
Vital Signs
Vital Signs
Temp Pulse Resp BP Pulse Ox
98.2 F 94 19 120/95 98
03/07/24 07:45 03/07/24 07:45 03/07/24 07:45 03/07/24 07:45 03/07/24 09:22
Physical Exam
Constitutional: No Acute Distress and Comfortable
Head: Other (right facial edema decreased)
Pulmonary: Clear
Extremities: Negative Edema
Objective Data
Lab Data
Lab Results
03/06/24 07:46
03/06/24 07:46
Estimated Creat Clear 68 ml/min 03/06/24 07:46
Most recent labs reviewed.
Micro Results:
03/03/24 18:22 Blood Culture - Preliminary
Blood/Venous No Growth in 72 hours- Final report to follow
03/04/24 18:09 Wound Culture - Final
Abscess No growth
Gram Stain - Final
03/03/24 07:00 MRSA Screen - Final
Nose No Methicillin Resistant Staphylococcus aureus isolated.
03/03/24 CT facial bones with contrast: There is a phlegmonous collection/likely developing abscess along the anterior right maxilla associated with the root of the maxillary right canine. This measures approximately 9 x 7 mm. There is additional soft
tissue swelling and stranding throughout the maxillary and mandibular soft tissues on the right. There is extensive additional dental caries involving the roots of the residual right-sided maxillary premolars and molars as well as the left
maxillary molars and premolars. Dental caries involving the bilateral mandibular premolars with associated periapical lucencies as well as an extensive likely carry of the left mandibular second molar.
03/03/[address]: No acute intracranial abnormality noted.
[2024-03-07] MEDS: AUGMENTIN 875 MG/125 MG 1 TABLET PO (12:17)
--- NOTE | 2024-03-07 12:27 | W.PN.HOSP.TC ---
Today's Communication/Plan
-
d/c
Assessment / Plan
Assessment / Plan
Pt seen and examined with nurse Bonita Osullivan present at bedside:
Gen: NAD, AAOx3.
Eyes: EOMI, PERRLA, no scleral icterus.
Neck: supple.
CV: RRR, +S1/S2, no m/r/g.
Resp: CTAB, no rales, wheezes, or rhonchi.
Abd: +BS, soft, NT, ND
Skin: No rashes.
Neuro: CN 2-12 intact, non-focal.
Psych: Normal mood and affect.
03/03/24 18:22 Blood/Venous Blood Culture - Preliminary
No Growth in 72 hours- Final report to follow
03/04/24 18:09 Abscess Wound Culture - Final
No growth
03/04/24 18:09 Abscess Gram Stain - Final
03/03/24 07:00 Nose MRSA Screen - Final
No Methicillin Resistant Staphylococcus aureus isolated.
Odontogenic abscess:
-Facial bone CT with impression of phlegmonous collection/likely developing abscess along the anterior right maxilla associated with the root of the maxillary right canine. This measures approximately 9 x 7 mm. There is additional soft tissue
swelling and stranding throughout the maxillary and mandibular soft tissues on the rightThere is extensive additional dental caries involving the roots of the residual right-sided maxillary premolars and molars as well as the left maxillary molars
and premolars. Dental caries involving the bilateral mandibular premolars with associated periapical lucencies as well as an extensive likely carry of the left mandibular second molar. There is mild mucosal thickening along the floor of the
maxillary sinuses, likely odontogenic in nature.
-head CT with no acute findings.
-s/p I&D of small abscess of tooth #6 by OMFS
-BCxs NGTD
-Cultures sent to lab however patient has received IV antibiotic in the hospital, at [facility] and also multiple p.o. antibiotics recently.
-has been on IV Unasyn, transition to Augmentin through 03/16/24 as per ID
Other problems:
Anxiety: cont clonazepam/Seroquel
h/o methamphetamines abuse
FULL/Lovenox
Medically stable for d/c, case management aware.
Total time spent on d/c = 31 min. This included today's physical exam, progress note, review of laboratory and diagnostic data, preparation of discharge documents and prescriptions, and discussions about the pt's hospital course and discharge plan
with the patient and other registered medical transcriptionist involved in the patient's care.
Anticipated Discharge: Today
Subjective/Interval History
-
Date of Service: March 07, 2024
No new complaints. Denies CP/SOB/abd pain.
Objective Data
-
Vital Signs:
Vital Signs
Temp Pulse Resp BP Pulse Ox
98.2 F 94 19 120/95 98
03/07/24 07:45 03/07/24 07:45 03/07/24 07:45 03/07/24 07:45 03/07/24 09:22
I&O
03/06/24 03/07/24 03/08/24
06:59 06:59 06:59
Intake Total 2039
Balance 2039
--- NOTE | 2024-03-07 14:24 | CM ---
Patient discharge today back to [facility] on po abx.
PLAN: Discharge today to [facility].
[facility]
report# [facility] [phone]
fax# [phone]
[2024-03-07 15:15] VITALS: BP 125/87
--- NOTE | 2024-03-07 16:02 | W.DCSUMMARY ---
Discharge Summary
Discharge Data
Date of Admission: 03/03/24
Date of Discharge: 03/07/24
-
Pending Results: No
Hospital Course
Primary diagnoses:
Odontogenic abscess s/p I&D of small abscess of tooth #6
Secondary diagnoses:
Anxiety
h/o methamphetamines abuse
Consultants:
Oral maxillofacial surgery
Infectious disease
Imaging:
CT facial bones: There is a phlegmonous collection/likely developing abscess along the anterior right maxilla associated with the root of the maxillary right canine. This measures approximately 9 x 7 mm. There is additional soft tissue swelling and
stranding throughout the maxillary and mandibular soft tissues on the right. There is extensive additional dental caries involving the roots of the residual right-sided maxillary premolars and molars as well as the left maxillary molars and
premolars. Dental caries involving the bilateral mandibular premolars with associated periapical lucencies as well as an extensive likely carry of the left mandibular second molar. There is mild mucosal thickening along the floor of the maxillary
sinuses, likely odontogenic in nature.
CT brain: No acute intracranial abnormality noted.
Hospital course: 53-year-old female who presented with chief complaints of right facial pain and decreased sensation as outlined in the H&P done on admission. Imaging above. Patient was placed on IV Unasyn. The patient was seen by oral
maxillofacial surgery. She underwent I&D of small abscess of tooth #6 by [facility]. Blood cultures were no growth to date. She was seen in consultation by infectious disease. She was transitioned to Augmentin through 03/16/24 on discharge.
Discharge Plan
-
Patient Disposition: Detention
Discharge Diagnosis/Procedures: Odontogenic abscess of tooth #6 status post incision and debridement
Condition: Good
Diet: Regular
Activity: As tolerated
Driving Restrictions: As prior to admission
Referrals:
[facility] [Family Provider] - Immediately
Prescriptions:
New
amoxicillin-pot clavulanate 875-125 mg Tablet
1 tab PO Q12 Qty: 0 0RF
Rx Instructions:
through 03/16/24
nicotine 21 mg/24 hr Patch 24 Hour
21 mg transdermal DAILY Qty: 0 0RF
Continued
quetiapine 25 mg Tablet
25 mg PO DAILY
clonazepam 0.5 mg Tablet
0.5 mg PO HS
therapeutic multivitamin Tablet
1 tab PO DAILY
acetaminophen 500 mg Tablet
1,000 mg PO TID
diphenhydramine HCl 25 mg Capsule
25 mg PO BID
ibuprofen 600 mg Tablet
600 mg PO TIDPRN PRN (Reason: mild pain)
quetiapine 50 mg Tablet
50 mg PO HS
Discontinued
amoxicillin 500 mg Capsule
500 mg PO TID
clindamycin in 0.9 % sod chlor 600 mg/50 mL Piggyback
600 mg IV Q8H
Discharge Orders:
Discharge Patient (As Directed); Ordered 03/07/24
Ordered By: Jimmie Christie
Discharge Date and Time
Print Language: YORUBA
[2024-03-07] MEDS: LOVENOX SC (17:31)
== END 2024-03-07 19:17 | DRG 159 ==
LOC: 4 WEST ACU 16:59
PROVIDERS: Registered Nurse; ADMITTING PHYSICIAN Hospitalist; ATTENDING PHYSICIAN Internal Medicine; CONSULT PHYSICIAN Dentist Oral and Maxillofacial Surgery; EMERGENCY PHYSICIAN Student in an Organized Health Care Education/Training Program; OTHER PHYSICIAN Internal Medicine Infectious Disease
PROC: 0W930ZX Drainage of Oral Cavity and Throat, Open Approach, Diagnostic (ICD-10-PCS; 2024-03-04)
DX: K04.7 Periapical abscess without sinus (principal); R51.9 Headache, unspecified; H53.8 Other visual disturbances; F41.9 Anxiety disorder, unspecified; K02.9 Dental caries, unspecified; R20.0 Anesthesia of skin; R20.2 Paresthesia of skin; F39 Unspecified mood [affective] disorder; F15.10 Other stimulant abuse, uncomplicated; Z87.891 Personal history of nicotine dependence
CPT/HCPCS: 70450; 70487; 80048; 85025; 87040; 87070; 87205; 93005; 96361; 96365; 96375; 99285; 99406; Q9967